=== PATIENT | female | born 1985 | race Caucasian/White ===

== ENCOUNTER → 2019-06-05 11:52 | Outpatient (CLI) | payer OTHER, SELFPAY ==
[2019-06-05 16:37] LABS: Chlamydia Trachomatis by PCR Negative (Negative); Neisserai gonorrhoeae by PCR Negative (Negative); Probe Check PASS; Sample Adequacy Control PASS; Specimen Processing Control PASS
== END ==
PROVIDERS: Visit Provider Advanced Practice Midwife
DX: Z11.3 Encounter for screening for infections with a predominantly sexual mode of transmission (principal)
CPT/HCPCS: 87491; 87591

== ENCOUNTER → 2019-06-28 16:03 | Outpatient (CLI) | payer OTHER, SELFPAY ==
[2019-06-28 17:12] LABS: Color, Urine Straw (Yellow); Glucose, Dipstick Normal (Normal); Ketone-Dipstick Negative (Negative); Leukocyte Esterase-Dipstick Negative /ul (Negative); Nitrite-Dipstick Negative (Negative); Occult Blood-Urine Negative /ul (Negative); Protein-Dipstick Negative (Negative); Urine Bilirubin Dipstick Negative (Negative); Urine Clarity Clear (Clear); Urine Urobilinogen Normal (Normal)
[2019-06-28 17:30] LABS: Absolute Lymphocyte Count 2.02 X10^3/uL (0.83-4.51); Absolute Neutrophil Count 7.3 X10^3/uL (2.0-7.7); Basophil# 0.03 X10^3/uL; Basophil% 0.3 % (0-1); Eosinophil# 0.04 X10^3/uL; Eosinophils% 0.4 % (0-5); Hematocrit 42.6 % (37-47); Hemoglobin 14.6 g/dL (12.0-15.0); Lymphocyte # 2.02 X10^3/ul (4.0); Mean Corp Hgb Conc 34.3 g/dL (32-36); Mean Corpuscular Hgb 30.6 pg (27.0-32.0); Mean Corpuscular Volume 89.3 fL (81-99); Mean Platelet Vol. 9.3 fl (6.2-12.0); Monocyte# 0.64 X10^3/uL; Monocyte% 6.3 % (0-10); NRBC Flagged by Analyzer 0 % (0-5); Neutrophil # 7.34 X10^3/uL (2.7-7.7); Neutrophil % 72.7 % (47-70); Platelet Count 267 K/mm3 (150-450); RBC Distribution Width CV 12.2 % (11.6-14.6); RBC Distribution Width SD 40.3 fl (35.1-43.9); Red Blood Count 4.77 M/mm3 (4.2-5.4); White Blood Count 10.1 K/mm3 (4.4-11.0)
[2019-06-28 18:18] LABS: Amphetamine Urine VISTA NEGATIVE (<1000 ng/mL); Barbiturate Urine VISTA NEGATIVE (< 200 ng/mL); Benzodiazepine Urine VISTA NEGATIVE (< 200 ng/mL); Cocaine Urine VISTA NEGATIVE (< 300 ng/mL); Ecstacy Urine VISTA NEGATIVE (< 500 ng/mL); Methadone Urine VISTA NEGATIVE (< 300 ng/mL); PCP Urine VISTA NEGATIVE (< 25 ng/mL); THC Urine VISTA NEGATIVE (< 50 ng/mL); Vista UDS pH Range 6
[2019-07-01 09:43] LABS: HIV - WCH Non-Reactive (Nonreactive); Hepatitis B Surface Antigen Non-Reactive (Nonreactive); Hepatitis C Antibody Non-Reactive (Nonreactive); Rubella IgG 7.7 IU/mL
[2019-07-04 02:24] LABS: Prenatal RPR NONREACTIVE (NONREACTIVE)
== END ==
PROVIDERS: Visit Provider Advanced Practice Midwife
DX: Z34.81 Encounter for supervision of other normal pregnancy, first trimester (principal)
CPT/HCPCS: 36415; 80307; 81002; 84443; 85025; 86703; 86762; 86803; 87340

== ENCOUNTER → 2019-10-03 13:52 | Outpatient (CLI) | payer BC, SELFPAY | PROVIDERS: Referring Provider Obstetrics & Gynecology; Visit Provider Obstetrics & Gynecology | DX: Z34.82 Encounter for supervision of other normal pregnancy, second trimester (principal); N89.8 Other specified noninflammatory disorders of vagina | CPT/HCPCS: 87086 ==

== ENCOUNTER → 2019-11-07 17:42 | Outpatient (CLI) | payer BC, SELFPAY ==
[2019-11-07 18:25] LABS: Hematocrit 37.6 % (37-47); Hemoglobin 12.5 g/dL (12.0-15.0); Mean Corp Hgb Conc 33.2 g/dL (32-36); Mean Corpuscular Hgb 31.2 pg (27.0-32.0); Mean Corpuscular Volume 93.8 fL (81-99); Mean Platelet Vol. 9.9 fl (6.2-12.0); Platelet Count 198 K/mm3 (150-450); RBC Distribution Width SD 44.3 fl (35.1-43.9); Red Blood Count 4.01 M/mm3 (4.2-5.4); White Blood Count 9.5 K/mm3 (4.4-11.0)
[2019-11-07 19:02] LABS: Glucose Challenge Gest 1H 50g 102 mg/dL (70-140)
== END ==
PROVIDERS: Visit Provider Obstetrics & Gynecology
DX: Z34.83 Encounter for supervision of other normal pregnancy, third trimester (principal)
CPT/HCPCS: 82950; 85027

== ENCOUNTER → 2020-01-02 10:00 | Outpatient (CLI) | payer BC, SELFPAY | PROVIDERS: Visit Provider Obstetrics & Gynecology | DX: Z36.85 Encounter for antenatal screening for Streptococcus B (principal) | CPT/HCPCS: 87081 ==

== ENCOUNTER 2020-01-30 12:00 | Inpatient (IN) | payer BC, SELFPAY ==
[2020-01-30] VITALS (15 sets, daily range): BP systolic 113–134; BP diastolic 61–81; PULSE 49–63; TEMP 36.7–37.2; O2SAT 96–100; BMI 24.8
--- NOTE | 2020-01-30 12:19 | PCM.HP.OB ---
- Problem List (1) 40 weeks gestation of Status: Acute (2) AMA (advanced maternal age) primigravida 35+ Status: Acute Qualifiers: Trimester: third trimester Qualified Code(s): O09.513 - Supervision of elderly primigravida, third trimester History Date of Admission: 01/30/20 Final JOANNE: 01/27/20 Gestational age: 40 Weeks and 3 Days History of this : This is a 35 year-old, G [1], P [], at 40 3/7 weeks gestational age. Medical History: Medical History (Last Updated 01/30/20 @ 17:[address] Camelia Perales MD) Asthma J45.909 Home Medications: Home Medications Docusate Sodium [Colace] 200 mg PO DAILY 01/30/20 Loratadine [Claritin] 10 mg PO DAILY 01/30/20 Pnv No.95/Ferrous Fum/Folic AC [ Vitamin Tablet] 1 ea PO DAILY 01/30/20 Alcohol: None Number of Fetus(es): 1 NST - FHR Rate Baby A Baseline: 130 Variability:: Moderate Accelerations:: 15 x 15 Decelerations:: None NST Reactive:: Yes FHR Category:: Category I Uterine Activity:: 3/10 min History Past Pregnancies: Past Pregnancies Delivery Date Name GA/ Weeks Outcome Route Wt Infant Sex Labor Length Anesthesia Delivery Location Provider FOB Labs: Mom's Problem List Problem Status Onset Code 40 weeks gestation of Acute Z3A.40 AMA (advanced maternal age) primigravida 35+ Acute O09.519 Mom's Labs & Results 01/30/20 01/30/20 01/30/20 12:55 14:15 14:15 WBC 10.5 RBC 4.57 Hgb 14.3 Hct 41.1 MCV 89.9 MCH 31.3 MCHC 34.8 RDW Std Deviation 40.6 RDW Coeff of Radha 12.5 Plt Count 176 MPV 10.4 Immature Gran % (Auto) 0.500 Neut % (Auto) 69.5 Lymph % (Auto) 21.9 [place] % (Auto) 7.1 Eos % (Auto) 0.6 Baso % (Auto) 0.4 Absolute Neuts (auto) 7.3 Absolute Lymphs (auto) 2.30 Nucleated RBC % 0 COVID-19 (VAZQUEZ) Not Detected Blood Type O POSITIVE Antibody Screen NEGATIVE Course Did the patient receive Yes care? Labs Blood Type: O RH: POSITIVE RPR/VDRL/Syphilis Nonreactive Rubella status Equivocal HbSAg Negative Date Done: 06/28/19 Chlamydia Negative Gonorrhea Negative HIV/AIDS Non-Reactive Group B Strep: Negative Current Obstetrical History Gestational Diabetes No Incompetent Cervix No Infertility No IUGR No Macrosomia No Hypertension/Pre-eclampsia No Placenta Previa/Abruption No PTL/PROM No Uterine anomaly No Oligohydramnios No Polyhydramnios No Multiple gestation No Past Medical History Asthma Yes: since childhood; inhaler prn Diabetes No Hypertension No Heart disease No Mitral valve prolapse No Neurologic/Seizure disorder/ No Migraines Kidney disease No Liver disease No Varicosities No Clotting disorders/Hx of DVT No Thyroid Dysfunction No Other medical diseases No Psychiatric disorders No Major trauma No Abnormal PAP smear Yes: 2003 Sleep apnea No Mammogram in the last 2 years No Social History Marital Status: SINGLE Alleged father Pedro Pablo Hx Smoking Yes Smoking Status Former smoker Substance Use Type Sleep Aides How long have you used N/A substances (years)? What date/time did you last Unisom occasionally in the past 2 months use any of the above? Have you had any previous N/A inpatient or outpatient treatment Expected Delivery Method: Spontaneous Vaginal Number of Visits: 14 Physical Exam Vitals: AVSS General: Alert, Oriented x3, Cooperative, No apparent distress HEENT: Atraumatic, Normocephalic Cardiovascular: Regular rate, Regular Rhythm, Normal S1, Normal S2 Lungs: Clear to auscultation, Normal air movement Abdomen: Soft, Non Tender, Non-Distended Extremities:: No edema Neurological: Neuro grossly intact Estimated gestational size: Appropriate for gestational size Presentation: Cephalic Cervix Dilation (cm): 0.5 Station: -3 Effacement (%): 30 Assessment/Plan All Active Problems 40 weeks gestation of (Acute) AMA (advanced maternal age) primigravida 35+ (Acute) This is a 35 year-old, G [1], P [], at 40 3/7 weeks gestational age. Cytotec for IOL
[2020-01-30] MEDS: Lactated Ringers 1,000 ML 50 ML IV (14:15)
[2020-01-30 14:42] LABS: Absolute Neutrophil Count 7.3 X10^3/uL (2.0-7.7); Basophil# 0.04 X10^3/uL; Basophil% 0.4 % (0-1); Eosinophil# 0.06 X10^3/uL; Eosinophils% 0.6 % (0-5); Hematocrit 41.1 % (37-47); Hemoglobin 14.3 g/dL (12.0-15.0); Lymphocyte % 21.9 % (19-41); Mean Corp Hgb Conc 34.8 g/dL (32-36); Mean Corpuscular Hgb 31.3 pg (27.0-32.0); Mean Corpuscular Volume 89.9 fL (81-99); Mean Platelet Vol. 10.4 fl (6.2-12.0); Monocyte# 0.75 X10^3/uL; Monocyte% 7.1 % (0-10); NRBC Flagged by Analyzer 0 % (0-5); Neutrophil % 69.5 % (47-70); Platelet Count 176 K/mm3 (150-450); RBC Distribution Width CV 12.5 % (11.6-14.6); RBC Distribution Width SD 40.6 fl (35.1-43.9); Red Blood Count 4.57 M/mm3 (4.2-5.4); White Blood Count 10.5 K/mm3 (4.4-11.0)
[2020-01-30] MEDS: miSOPROStol 25 MCG TABLET VAGINAL (14:42)
[2020-01-30] MEDS: miSOPROStol 50 MCG TABLET VAGINAL (18:47)
--- NOTE | 2020-01-30 19:59 | PCM.PN.OB ---
Patient Problems: Active and Suspected Problems (Last Updated 01/30/20 @ 17:[address] Camelia Perales MD) 40 weeks gestation of (Acute) AMA (advanced maternal age) primigravida 35+ (Acute) Subjective: Doing well. No pain at this time. Resting. Objective: SVE unchanged /50/-3 medium posterior. FHR baseline 130, +accels, -decels, moderate variability. Uterine irritability. - Physical Exam Vitals/I&O's: Vital Signs Temp Pulse BP Pulse Ox 98.2 F 50 L 134/61 H 100 01/30/20 19:57 01/30/20 19:58 01/30/20 19:58 01/30/20 19:57 Weight: 69.8 kg Body Mass Index (BMI) 24.8 Intake and Output for Last 24 Hours 01/28/20 01/29/20 01/30/20 23:59 23:59 23:59 Intake Total 1600 / 1600 Output Total 1150 / 1150 Balance 450 / 450 General: Alert, Oriented x3, Cooperative HEENT: Atraumatic, PERRLA, EOMI, Normocephalic Neck: Supple, No JVD, Negative Carotid Bruits Lungs: Clear to auscultation, Normal air movement Cardiovascular: Regular rate, No murmurs Abdomen: Bowel Sounds Present, Soft, Non Tender Extremities: No edema, Capillary Refill Less than 3 Seconds Skin: No rashes, No breakdown Musculoskeletal: No Tenderness to Palpation of Joints or Extremities Neurological: Cranial nerves II-XII grossly intact Psych/Mental Status: Normal Affect, Appropriate Laboratory Results 01/30/20 12:55: COVID-19 (VAZQUEZ) Not Detected 01/30/20 14:15: WBC 10.5, RBC 4.57, Hgb 14.3, Hct 41.1, MCV 89.9, MCH 31.3, MCHC 34.8, RDW Std Deviation 40.6, RDW Coeff of Radha 12.5, Plt Count 176, MPV 10.4, Immature Gran % (Auto) 0.500, Neut % (Auto) 69.5, Lymph % (Auto) 21.9, [place] % (Auto) 7.1, Eos % (Auto) 0.6, Baso % (Auto) 0.4, Absolute Neuts (auto) 7.3, Absolute Lymphs (auto) 2.30, Nucleated RBC % 0 01/30/20 14:15: Blood Type O POSITIVE, Antibody Screen NEGATIVE Current Medications Acetaminophen (Tylenol) 325 - 650 mg PO Q4H PRN PRN PRN Reason: Pain Score 1-3/10 Al Hydroxide/Mg Hydroxide (Mylanta Ii) 15 - 30 ml PO Q4H PRN PRN PRN Reason: INDIGESTION Citric Acid/Sodium Citrate (Bicitra) 30 ml PO X1 PRN PRN Reason: Section Docusate Sodium (Colace) 200 mg PO DAILY [facility] Fentanyl Citrate (Sublimaze (100mcg Ampule)) 25 - 50 mcg IV Q2H PRN PRN PRN Reason: Pain Score 4-10/10 Lactated Ringer's () 500 mls @ 999 mls/hr IV .Q31M PRN PRN Reason: Epidural Lactated Ringer's () 500 mls @ 999 mls/hr IV .Q31M PRN PRN Reason: Corrective Measures Lactated Ringer's () 1,000 mls @ 50 mls/hr IV .Q20H [facility] Last Admin: 01/30/20 14:15 Dose: 50 mls/hr Documented by: Misoprostol (Cytotec) 50 mcg VAGINAL Q6H [facility] Last Admin: 01/30/20 18:47 Dose: 50 mcg Documented by: Ondansetron HCl (Zofran) 4 mg IV Q4H PRN PRN PRN Reason: NAUSEA Prochlorperazine Edisylate (Compazine Iv) 10 mg IV Q6H PRN PRN PRN Reason: NAUSEA Sodium Chloride () 10 - 40 ml IV X1 PRN PRN Reason: SALINE FLUSH Medical Necessity - Tobacco Use Smoking Status: Former smoker Assessment/Plan All Active Problems (Last Updated 01/30/20 @ 17:[address] Camelia Perales MD) 40 weeks gestation of (Acute) AMA (advanced maternal age) primigravida 35+ (Acute) A/P: At 1830 received second dose of Cytotec SVE remains unchanged Continue IOL orders Expect
[2020-01-30] MEDS: Docusate Sodium 100 MG Capsule 200 MG PO (20:29)
[2020-01-30] MEDS: 0.9% Saline Lock 10 ML Syringe IV (22:56)
[2020-01-30] MEDS: Ondansetron 4 MG/2 ML Vial IV (22:56)
[2020-01-30] MEDS: Lactated Ringers 500 ML 999 ML IV (23:48)
[2020-01-31] VITALS (54 sets, daily range): BP systolic 97–136; BP diastolic 49–83; PULSE 46–80; RESP 16–18; TEMP 36.1–37.8; O2SAT 88–100
[2020-01-31] MEDS: fentaNYL-bupivacaine (epidural) 100 ML BAG EPIDURAL ×3 (00:39→12:05)
[2020-01-31] MEDS: Oxytocin 30 units/NS 500 ml 30 UNITS/500 ML IV.SOLN IV (01:35)
[2020-01-31] MEDS: Lactated Ringers 1,000 ML 200 ML IV ×3 (03:14→12:04)
--- NOTE | 2020-01-31 07:35 | PCM.PN.BLA ---
Progress Note LABOR PROGRESS NOTE Comfortable with epidural. No complaints. AVSS GEN - NAD, AAO x 3 FHR 125, moderate variabiltiy, + acceleration, no decelerations TOCO 4/10 min Pitocin at 4mu/min SVE 6/90/-2, soft A/P: 35yo G1 @ 40 4/7wga, IOL for AMA, Cat I FHR -Amniotomy performed, clear fluid -Continue pitocin as tolerated by mother and fetus -Maternal and statuses reassuring STROKE Vital Signs/Narrative: Vital Signs Temp Pulse BP Pulse Ox 01/31/20 07:24 53 L 109/61 01/31/20 07:19 99.3 F H 01/31/20 07:14 99.3 F H 01/31/20 06:29 100.0 F H 73 112/67 95 01/31/20 05:31 98.6 F 49 L 101/60 97 01/31/20 04:41 98.1 F 57 L 100/55 L 96
[2020-01-31] MEDS: Acetaminophen 325 MG Tablet PO (14:31)
[2020-01-31] MEDS: Sodium Citrate/Citric Acid 30 ML UDC PO (17:05)
--- NOTE | 2020-01-31 17:11 | PCM.OPRPT ---
Delivery Classification: SAMANTA Final JOANNE: 01/27/20 Final JOANNE Source: US <20 weeks Gestational age: 40 Weeks and 4 Days doctor who attended delivery (if requested by OB): Joycelyn Borrero - Thick Mec Stained Fluid Type of Anesthesia:: Epidural - With Duramorph Date of Procedure: 01/31/20 Pre-Operative Diagnosis: Failure to Progress and Descend; Cephalopelvic Disproportion; Failed Vacuum Attempt Post-Operative Diagnosis: Failure to Progress and Descend; Cephalopelvic Disproportion; Failed Vacuum Attempt Indications for : Failure to Progress, Failure of Descent, Failed vaccuum extraction, Suspected cephalopelvic disproportion Description of Procedure: Surgeon: Rodriguez Beck MD, FACOG Anesthesia: Ran Mayer CRNA Procedure: Primary Low Transverse Cervical Caesarean Section Findings: Viable male infant with Apgars of 8/9 in occiput anterior presentation with thick meconium stained amniotic fluid and normal three-vessel placenta. Indication: This is a 35-year-old who presented to labor and delivery for induction at 40+ weeks gestation. care has otherwise been uneventful. She progressed to complete and pushing and after 4 hours of pushing vacuum attempt was made without success. After 7 gentle pulls from low outlet with 1 pop-off it was decided to proceed with section for failure to descend. Suspected cephalopelvic disproportion. Thick meconium stained fluid was present as well. The patient has been counseled regarding the risk and indications of this procedure including the possibility of bleeding infection and injury to surrounding structures such as bowel bladder. All questions were answered. Procedure: Patient was taken to the operating room where after epidural catheter was redosed, the patient was prepped and draped in usual sterile fashion; a Leija catheter had been previously placed. The abdomen was entered through a Pfannenstiel incision and peritoneum was entered bluntly. After developing a bladder flap on the lower uterine segment a low transverse incision was made on the uterus and head was easily delivered onto the operative field the nose mouth and oropharynx were bulb suctioned. Subsequently a viable male infant was born with Apgars of 8/9. The infant was noted to have good tone and move all extremities vigorously on the operative field while being bulb suctioned. The umbilical cord was doubly clamped and ligated and infant handed to the nursery personnel who were present for the delivery. Placenta was delivered and noted to be 3 vessels and normal. Uterus was exteriorized and remaining placental tissue was removed. The uterus was then closed in 2 layers first with running locked 0 Vicryl suture followed by a second imbricating layer with 0 Vicryl suture. 0 Vicryl suture was then used in a horizontal mattress interrupted fashion to affect final hemostasis of the uterine incision line. Normal fallopian tubes and ovaries were visualized and the uterus was returned to the pelvis. Hemostasis was noted and rectus abdominis muscles were reapproximated in the midline with interrupted Number 0 Vicryl suture in a horizontal mattress fashion. Fascia was closed with running Number 1 PDS Strata fix suture. Subcutaneous tissue was irrigated with copious amounts of saline solution and then closed with running 3-0 Vicryl suture. Skin was closed with 4-0 monocryl suture in a running subcuticular fashion. Steri strips and a Mepilex dressing were placed across the incision. The patient tolerated the procedure well and was taken to the recovery room in satisfactory condition. Sponge, needle, and instrument counts were all reportedly correct. EBL was 500 cc. Ancef 2 gms and azithromycin IV were given prior to the procedure. Spicemen to Pathology: Placenta Complications: None Amniotic Fluid Description: Thick meconium Placenta Disposition: Sent to Pathology Drain: Leija to straight drain Fluids Replaced: Crystalloid Cord Entanglement: None Cord Vessel Description: 3 Vessels Esitmated Blood Loss (ml): 500 cc Infant Gender: Male (1 minute): 8 (5 minute): 9 Antibiotic Given: Ancef 2 grams IV x1, Zithromax 500 mg/5 mL X1 Pt instructed on risks of surgery: Bleeding, Infection, Injury to surrounding structure(s) including bowel and bladder - Admit VTE Documentation VTE Present on Admission: Yes VTE Mechan Device Prophylaxis: SCD's
--- NOTE | 2020-01-31 17:18 | DCINST_ITS ---
Discharge Diet: No Restrictions Discharge Activity: May not drive while taking narcotic pain medications., May Shower, May Take a Tub Bath May resume sexual activity in: 4-6 weeks Lifting Restrictions: 20 pounds Additional Activity Instructions:: Nothing in the vagina for 4-6 weeks. You may return to work/school in 6 weeks. Call your doctor if your incision/area has: Continuous Slow Oozing, Sudden Increased Bleeding, Increased Pain/ Swelling, Increased Redness, Foul Smelling Discharge Call your doctor if you observe: Fever of 101 or Higher, Inability to urinate, Inability to have a bowel movement, Using more than one pad per hour Additional Instructions: If you experience any of the following, contact your healthcare provider. * Bleeding that soaks a pad every hour for 2 hours * Fever 100.4 or higher * Unrelieved incision or abdominal pain * Swelling, redness, discharge or bleeding from your incision or episiotomy site * Your incision begins to separate * Problems urinating (including inability to urinate or burning while urinating). * Visual changes * Severe headache * Flu-like symptoms * Pain or redness in one of both of your breasts * Pain, warmth, tenderness or swelling in your legs, especially the calf area * Frequent nausea and vomiting * Symptoms of depression or anxiety If you experience any of the following, call 911 or go to the nearest Emergency Room. * Chest pain * Problems breathing * Seizure activity * Partial or complete paralysis of a body part, slurred speech, weakness or drooping of the face, or a sudden inability to walk or hold your balance Allergies/Adverse Reactions: Allergies No Known Allergies Allergy (Verified 01/30/20 15:27) Medications to take at Discharge Docusate Sodium [Colace] 200 mg PO DAILY 01/30/20 Loratadine [Claritin] 10 mg PO DAILY 01/30/20 Pnv No.95/Ferrous Fum/Folic AC [ Vitamin Tablet] 1 ea PO DAILY 01/30/20 Oxycodone [Oxyir] 5 mg PO Q6H PRN PRN 7 Days #20 tablet 01/31/20 The following prescriptions were given: Oxycodone [Oxyir] 5 mg PO Q6H PRN PRN 7 Days #20 tablet PRN Reason: Pain Score 6-04/11 Transmission Status: Received by ANA MARIA [id number] Follow-Up: Call to make an appointment with your doctor for an incision check in 1-2 weeks. You will also need a 6 week post- follow up appointment. Test results from this visit will be discussed in further detail at your follow- up appointment, if applicable. Please Follow Up With: Camelia Chowdhury MD - [phone] When: Call to make an appointment for an incision check in 2 weeks.
[2020-01-31] MEDS: Cefazolin 2 GM in 0.9% Normal Saline 100 ML IV (17:20)
[2020-01-31] MEDS: Oxytocin 30 units/NS 500 ml 30 UNITS/500 ML IV.SOLN 167 UNITS IV (18:35)
[2020-01-31] MEDS: Lactated Ringers 1,000 ML 100 ML IV (18:35)
[2020-01-31] MEDS: Acetaminophen 500 MG Tablet 1000 MG PO (20:20)
--- NOTE | 2020-01-31 20:40 | NURSING ---
Epidural catheter removed, blue tip intact.
--- NOTE | 2020-01-31 20:55 | NURSING ---
Report given to Alannah MASCORRO, taking over pt and care at this time.
[2020-01-31] MEDS: Ketorolac 30 MG/ML Syringe IV (23:25)
[2020-01-31] MEDS: 0.9% Saline Lock 10 ML Syringe IV (23:36)
[2020-02-01] VITALS (8 sets, daily range): BP systolic 89–100; BP diastolic 50–55; PULSE 57–68; RESP 16–18; TEMP 36.2–36.6; O2SAT 96–100
--- NOTE | 2020-02-01 | PLAC_PTH ---
PATIENT: SUNNY ALEMAN LOC: WP U#:[id number] AGE/SX: 35/F ROOM: WP008 RE01/30/[address]: Dr. Rodriguez Beck MD : 1985 BED: 1 DIS: 02/02/2020 SPEC #: [id number] RECD: 02/01/20 00:24 STATUS: BRAYDEN CARMEN #: [id number] TAYLOR: 02/01/20 00:[address]: Rodirguez Beck DEPT: SURGICAL PATHOLOGY RECD BY: Lamine Panchal Tissues: Placenta, NOS Procedures: Surgery Specimen Level V HEADER OPERATION: Primary section PRE-OP DIAGNOSIS: Meconium staining TISSUE SUBMITTED: Placenta MICROSCOPIC DIAGNOSIS Norris placenta (416 gm): Umbilical cord - trivascular with no evidence of inflammation. Placental membranes - pigmented macrophages consistent with meconium staining and mild acute chorioamnionitis. Placental disc - [place] change, intervillous and intravillous congestion. Mildly increased intraparenchymal microcalcifications. AM:seth 02/05/20 MICROSCOPIC DESCRIPTION Slides are reviewed. GROSS DESCRIPTION SPECIMEN: PLACENTA / CLINICAL INFORMATION: A. Weight: 3.31 kg B. Gestational Age: 40 weeks C. Sex: Male PLACENTAL WEIGHT (POST FIXATION): 416 gm PLACENTAL DIMENSIONS: 21 x 18 x 2 cm PLACENTAL SHAPE: Usual ovoid PLACENTAL WEIGHT FOR GESTATIONAL AGE: Within 10-99th percentile MEMBRANES - Present A. Insertion: Marginal B. Site of rupture from edge: Point of rupture cannot be assessed due to fragmented nature of membranes. C. Color of membrane: The membranes are fragmented and greenish consistent with meconium staining. D. Abnormalities: None UMBILICAL CORD - Present A. Color: Pedro-alfonso B. Insertion: Central C. Length: 32 cm D. Diameter: 1.4 cm E. Number of vessels: Three F. Abnormalities: None PLACENTAL DISC - Present A. Color of surface: Pedro-alfonso B. surface abnormalities: None C. Maternal cotyledons: Intact with minimal tears D. Attached retro placental clot: No clot E. Cut surface: Dark red and spongy F. Lesions: None G. Separate clot: Absent SECTIONS SUBMITTED: 1. Membrane roll 2. Cord, maternal end 3. Cord, end 4. Placental disc, and maternal surfaces 5. Placental disc, and maternal surfaces 6. Placental disc, and maternal surfaces SJ:seth 02/04/20 TC:2 CPT: 82291
[2020-02-01] MEDS: Cefazolin 1 GM/50 ML BAG IV ×2 (01:15→08:34)
[2020-02-01] MEDS: Acetaminophen 500 MG Tablet 1000 MG PO ×4 (01:16→21:02)
[2020-02-01] MEDS: 0.9% Saline Lock 10 ML Syringe IV ×3 (06:15→18:06)
[2020-02-01] MEDS: Ketorolac 30 MG/ML Syringe IV ×3 (06:15→18:06)
[2020-02-01 06:17] LABS: Hematocrit 33.6 % (37-47); Hemoglobin 11.7 g/dL (12.0-15.0); Mean Corp Hgb Conc 34.8 g/dL (32-36); Mean Corpuscular Hgb 31.4 pg (27.0-32.0); Mean Corpuscular Volume 90.1 fL (81-99); Mean Platelet Vol. 10.2 fl (6.2-12.0); Platelet Count 136 K/mm3 (150-450); RBC Distribution Width CV 12.3 % (11.6-14.6); RBC Distribution Width SD 40.5 fl (35.1-43.9); Red Blood Count 3.73 M/mm3 (4.2-5.4); White Blood Count 16.1 K/mm3 (4.4-11.0)
[2020-02-01] MEDS: Docusate Sodium 100 MG Capsule 200 MG PO (10:29)
--- NOTE | 2020-02-01 11:33 | PN.OBGYN_ITS ---
Patient Problems: Active and Suspected Problems (Last Updated 01/30/20 @ 17:[address] Camelia Perales MD) 40 weeks gestation of (Acute) AMA (advanced maternal age) primigravida 35+ (Acute) Subjective: Has been mostly in bed, but cramping and sore. The Tylenol and Toradol are helping as well as a heating pad. son well. Denies heavy bleeding or uncontrolled pain. Feels very constipated and asking for a stool softener. Objective: VSS. Bowel are hypoactive. Surgical dressing is CDI. Fundus is firm, midline, u/2. Lochia rubra moderate - Physical Exam Vitals/I&O's: Vital Signs Temp Pulse Resp BP Pulse Ox 97.7 F L 63 18 93/53 L 96 02/01/20 08:15 02/01/20 08:15 02/01/20 08:15 02/01/20 08:15 02/01/20 08:15 Oxygen Delivery Method Room Air Weight: 69.8 kg Body Mass Index (BMI) 24.8 Intake and Output for Last 24 Hours 01/30/20 01/31/20 02/01/20 23:59 23:59 23:59 Intake Total 2800 / 2800 7401.32 / 7401.32 1050 / 1050 Output Total 2650 / 2650 3050 / 3050 400 / 400 Balance 150 / 150 4351.32 / 4351.32 650 / 650 General: Alert, Oriented x3, Cooperative HEENT: Atraumatic, PERRLA, EOMI, Normocephalic Neck: Supple, No JVD, Negative Carotid Bruits Lungs: Clear to auscultation, Normal air movement Cardiovascular: Regular rate, No murmurs Abdomen: Bowel Sounds Present, Soft, Non Tender, Hypoactive Bowel Sounds, - - surgical dressing CDI Extremities: No edema, Capillary Refill Less than 3 Seconds Skin: No rashes, No breakdown Musculoskeletal: No Tenderness to Palpation of Joints or Extremities Neurological: Cranial nerves II-XII grossly intact Psych/Mental Status: Normal Affect, Appropriate Laboratory Results 02/01/20 06:10: WBC 16.1 H, RBC 3.73 L, Hgb 11.7 L, Hct 33.6 L, MCV 90.1, MCH 31.4, MCHC 34.8, RDW Std Deviation 40.5, RDW Coeff of Radha 12.3, Plt Count 136 L, MPV 10.2 Current Medications Acetaminophen (Tylenol) 1,000 mg PO Q6H [facility] Last Admin: 02/01/20 08:35 Dose: 1,000 mg Documented by: Bisacodyl (Dulcolax) 10 mg RECTAL UD PRN PRN Reason: If no BM Diphenhydramine HCl (Benadryl) 25 mg PO Q6H PRN PRN PRN Reason: ITCHING Stop: 02/01/20 18:43 Docusate Sodium (Colace) 200 mg PO DAILY [facility] Last Admin: 02/01/20 10:29 Dose: 200 mg Documented by: Hydrocortisone (Hytone) 1 applic TOPICAL TID PRN PRN; Protocol PRN Reason: Discomfort Lactated Ringer's () 1,000 mls @ 100 mls/hr IV .Q10H [facility] Last Admin: 02/01/20 06:45 Dose: Not Given Documented by: Naloxone HCl 4 mg/ Dextrose 504 mls @ 0 mls/hr IV .Q0M PRN; Protocol PRN Reason: Respiratory depression Ibuprofen (Motrin) 600 mg PO Q6 [facility] Ketorolac Tromethamine (Toradol (Bkc)) 30 mg IV Q6H [facility] Stop: 02/01/20 18:01 Last Admin: 02/01/20 06:15 Dose: 30 mg Documented by: Loratadine (Claritin) 10 mg PO DAILY [facility] Last Admin: 02/01/20 10:30 Dose: Not Given Documented by: Methylergonovine Maleate (Methergine) 0.2 mg IM X1 PRN PRN Reason: Uterine Atony Nalbuphine HCl (Nubain) 5 mg IV Q3H PRN PRN PRN Reason: ITCHING Stop: 02/01/20 18:43 Naloxone HCl (Narcan) 0.02 mg IV Q1M PRN PRN Reason: RR <10 and pt unresponsive Ondansetron HCl (Zofran) 4 mg IV Q4H PRN PRN PRN Reason: Nausea Oxycodone HCl (Oxyir) 5 - 10 mg PO Q4H PRN PRN PRN Reason: Pain Score 4-10/10 Prochlorperazine Edisylate (Compazine Iv) 10 mg IV Q6H PRN PRN PRN Reason: NAUSEA Senna/Docusate Sodium (Senokot-S, Ignacia-Colace) 0 tablet PO DAILY [facility] Simethicone (Mylicon) 80 mg PO PCHS PRN PRN Reason: Indigestion/stomach pain Sodium Chloride () 5 - 15 ml IV UD PRN PRN Reason: SALINE FLUSH Last Admin: 02/01/20 06:15 Dose: 10 ml Documented by: Medical Necessity - Tobacco Use Smoking Status: Former smoker Assessment/Plan All Active Problems (Last Updated 01/30/20 @ 17:[address] Camelia Perales MD) 40 weeks gestation of (Acute) AMA (advanced maternal age) primigravida 35+ (Acute) A/P: S/P Primary Csection POD #1 mother Pain well controlled To continue orders Expect discharge tomorrow
[2020-02-01] MEDS: Senna/Docusate Sodium 1 Tablet PO (12:04)
[2020-02-01] MEDS: Ibuprofen 600 MG Tablet PO (23:54)
[2020-02-02 02:20] VITALS: BP 95/59; PULSE 64; RESP 16; TEMP 36.3
[2020-02-02] MEDS: oxyCODONE 5 MG Tablet PO ×2 (02:40→12:12)
[2020-02-02] MEDS: Acetaminophen 500 MG Tablet 1000 MG PO ×2 (03:39→09:55)
[2020-02-02] MEDS: Ibuprofen 600 MG Tablet PO ×2 (06:11→13:07)
[2020-02-02 09:00] VITALS: BP 91/57; PULSE 72; RESP 16; TEMP 36.4; O2SAT 97
--- NOTE | 2020-02-02 09:33 | NURSING ---
Faint redness noted above dressing with no warmth noted.
[2020-02-02] MEDS: Docusate Sodium 100 MG Capsule 200 MG PO (09:54)
--- NOTE | 2020-02-02 12:38 | PCM.PN.OB ---
Patient Problems: Active and Suspected Problems (Last Updated 01/30/20 @ 17:[address] Camelia Perales MD) 40 weeks gestation of (Acute) AMA (advanced maternal age) primigravida 35+ (Acute) Subjective: Patient without complaints. Tolerating diet well. Positive BM. Ready to go home. Objective: Good urine output. Wound clean, dry, and intact with Mepilex dressing present. - Physical Exam Vitals/I&O's: Vital Signs Temp Pulse Resp BP Pulse Ox 97.5 F L 72 16 91/57 L 97 02/02/20 09:00 02/02/20 09:00 02/02/20 09:00 02/02/20 09:00 02/02/20 09:00 Oxygen Delivery Method Room Air Weight: 153 lb 14.122 oz Body Mass Index (BMI) 24.8 Intake and Output for Last 24 Hours 01/31/20 02/01/20 02/02/20 23:59 23:59 23:59 Intake Total 7401.32 / 7401.32 1100 / 1100 Output Total 3050 / 3050 400 / 400 Balance 4351.32 / 4351.32 700 / 700 Current Medications Acetaminophen (Tylenol) 1,000 mg PO Q6H [facility] Last Admin: 02/02/20 09:55 Dose: 1,000 mg Documented by: Bisacodyl (Dulcolax) 10 mg RECTAL UD PRN PRN Reason: If no BM Docusate Sodium (Colace) 200 mg PO DAILY [facility] Last Admin: 02/02/20 09:54 Dose: 200 mg Documented by: Hydrocortisone (Hytone) 1 applic TOPICAL TID PRN PRN; Protocol PRN Reason: Discomfort Naloxone HCl 4 mg/ Dextrose 504 mls @ 0 mls/hr IV .Q0M PRN; Protocol PRN Reason: Respiratory depression Ibuprofen (Motrin) 600 mg PO Q6 [facility] Last Admin: 02/02/20 06:11 Dose: 600 mg Documented by: Loratadine (Claritin) 10 mg PO DAILY [facility] Last Admin: 02/02/20 09:55 Dose: Not Given Documented by: Methylergonovine Maleate (Methergine) 0.2 mg IM X1 PRN PRN Reason: Uterine Atony Naloxone HCl (Narcan) 0.02 mg IV Q1M PRN PRN Reason: RR <10 and pt unresponsive Ondansetron HCl (Zofran) 4 mg IV Q4H PRN PRN PRN Reason: Nausea Oxycodone HCl (Oxyir) 5 - 10 mg PO Q4H PRN PRN PRN Reason: Pain Score 4-10/10 Last Admin: 02/02/20 12:12 Dose: 5 mg Documented by: Prochlorperazine Edisylate (Compazine Iv) 10 mg IV Q6H PRN PRN PRN Reason: NAUSEA Senna/Docusate Sodium (Senokot-S, Ignacia-Colace) 0 tablet PO DAILY [facility] Last Admin: 02/02/20 09:56 Dose: Not Given Documented by: Simethicone (Mylicon) 80 mg PO PCHS PRN PRN Reason: Indigestion/stomach pain Sodium Chloride () 5 - 15 ml IV UD PRN PRN Reason: SALINE FLUSH Last Admin: 02/01/20 18:06 Dose: 10 ml Documented by: Medical Necessity - Tobacco Use Smoking Status: Former smoker Assessment/Plan All Active Problems (Last Updated 01/30/20 @ 17:[address] Camelia Perales MD) 40 weeks gestation of (Acute) AMA (advanced maternal age) primigravida 35+ (Acute) Doing well postoperative day #2 status post primary section for failure to progress and CPD. Will discharge to home with routine instructions.
--- NOTE | 2020-02-02 12:41 | DS.PCM_ITS ---
Discharge Summary Date of Admission: 01/30/20 Date of Discharge: 02/02/20 Summary: Admission diagnosis: Term Intrauterine Discharge diagnosis: Term Intrauterine , Failure to Progress, Cephalopelvic Disproportion Procedure: Primary low transverse cervical section HPI: Uneventful care. PE: Unremarkable. Hospital Course: The patient is a 35 year old G 1 P 0 who presented to [facility] at 40+ weeks gestation. She subsequently had a primary for failure to progress and CPD. Postoperatively she did well demonstrating a stable HGB on POD 1 and bowel fxn by POD 2 at which time it was felt she was ready for discharge. Homegoing Instruction: She was instructed not to drive for several days or if using narcotic pain medication, not to put anything in the vagina for 4 weeks, not to lift >25 lbs for 6 weeks and to call the office for an appointment in 2 weeks and 6 weeks. Discharge Medications: She was given a prescription for Oxycodone and also plans to use Aleve or Motrin or Tylenol at home as needed for pain and Colace for constipation. Patient Problems: Active and Suspected Problems (Last Updated 01/30/20 @ 17:[address] Camelia Perales MD) 40 weeks gestation of (Acute) AMA (advanced maternal age) primigravida 35+ (Acute) - Physical Exam Vitals/I&O's: Vital Signs Temp Pulse Resp BP Pulse Ox 97.5 F L 72 16 91/57 L 97 02/02/20 09:00 02/02/20 09:00 02/02/20 09:00 02/02/20 09:00 02/02/20 09:00 Oxygen Delivery Method Room Air Weight: 153 lb 14.122 oz Body Mass Index (BMI) 24.8 Intake and Output for Last 24 Hours 01/31/20 02/01/20 02/02/20 23:59 23:59 23:59 Intake Total 7401.32 / 7401.32 1100 / 1100 Output Total 3050 / 3050 400 / 400 Balance 4351.32 / 4351.32 700 / 700 Current Medications Acetaminophen (Tylenol) 1,000 mg PO Q6H [facility] Last Admin: 02/02/20 09:55 Dose: 1,000 mg Documented by: Bisacodyl (Dulcolax) 10 mg RECTAL UD PRN PRN Reason: If no BM Docusate Sodium (Colace) 200 mg PO DAILY [facility] Last Admin: 02/02/20 09:54 Dose: 200 mg Documented by: Hydrocortisone (Hytone) 1 applic TOPICAL TID PRN PRN; Protocol PRN Reason: Discomfort Naloxone HCl 4 mg/ Dextrose 504 mls @ 0 mls/hr IV .Q0M PRN; Protocol PRN Reason: Respiratory depression Ibuprofen (Motrin) 600 mg PO Q6 [facility] Last Admin: 02/02/20 06:11 Dose: 600 mg Documented by: Loratadine (Claritin) 10 mg PO DAILY [facility] Last Admin: 02/02/20 09:55 Dose: Not Given Documented by: Methylergonovine Maleate (Methergine) 0.2 mg IM X1 PRN PRN Reason: Uterine Atony Naloxone HCl (Narcan) 0.02 mg IV Q1M PRN PRN Reason: RR <10 and pt unresponsive Ondansetron HCl (Zofran) 4 mg IV Q4H PRN PRN PRN Reason: Nausea Oxycodone HCl (Oxyir) 5 - 10 mg PO Q4H PRN PRN PRN Reason: Pain Score 4-10/10 Last Admin: 02/02/20 12:12 Dose: 5 mg Documented by: Prochlorperazine Edisylate (Compazine Iv) 10 mg IV Q6H PRN PRN PRN Reason: NAUSEA Senna/Docusate Sodium (Senokot-S, Ignacia-Colace) 0 tablet PO DAILY [facility] Last Admin: 02/02/20 09:56 Dose: Not Given Documented by: Simethicone (Mylicon) 80 mg PO PCHS PRN PRN Reason: Indigestion/stomach pain Sodium Chloride () 5 - 15 ml IV UD PRN PRN Reason: SALINE FLUSH Last Admin: 02/01/20 18:06 Dose: 10 ml Documented by:
[2020-02-02 13:07] VITALS: BP 113/49; PULSE 74; RESP 16; TEMP 36.2
[2020-02-05 14:30] LABS: Pathology Specimen OB SEE PATHOLOGY REPORT
== END 2020-02-02 14:35 | disposition home or self-care (01) | DRG 788 ==
PROVIDERS: Obstetrics & Gynecology; Admitting Provider Obstetrics & Gynecology; Visit Provider Obstetrics & Gynecology
DX: O99.52 Diseases of the respiratory system complicating childbirth (principal); J45.909 Unspecified asthma, uncomplicated; O32.4XX0 Maternal care for high head at term, not applicable or unspecified; O65.4 Obstructed labor due to fetopelvic disproportion, unspecified; O62.2 Other uterine inertia; O77.0 Labor and delivery complicated by meconium in amniotic fluid; O66.5 Attempted application of vacuum extractor and forceps; Z87.891 Personal history of nicotine dependence; Z3A.40 40 weeks gestation of pregnancy; Z37.0 Single live birth
CPT/HCPCS: 59025; 59050; 85025; 85027; 86850; 86900; 86901; 87635; 88307; 94799; J7120; A4216; J2405; U0003

== ENCOUNTER 2020-02-03 15:11 | Emergency (ER) | payer BC, SELFPAY ==
[2020-01-30 15:24] VITALS: BMI 24.8
[2020-02-03 15:13] VITALS: BP 142/86; PULSE 69; RESP 17; TEMP 36.6; O2SAT 97; BMI 25.9
--- NOTE | 2020-02-03 15:54 | ED.VIS.GEN ---
History of Present Illness Chief Complaint: Complaint Informant: Patient Onset: Hours - 5-6 Context: Gradual Onset Timing: Continuous Quality: Unable to urinate, feels the need to Location: Suprapubic Current Severity: Severe Maximum Severity: Severe Worsened by: Nothing Relieved by: Nothing Associated Symptoms: Lower abdominal distention and discomfort Narrative: Patient had a 3 days ago after failed vacuum-assisted vaginal delivery, for failure to descend, and had a Leija catheter in place that was removed 3 days ago, she has been urinating without any difficulty, and no hematuria, today suddenly she was unable to void after having voided fine this morning earlier. Just prior to my evaluating patient, nurses placed a Leija catheter, and drained approximately 1400 cc and the patient feels much better now. She did not have any lacerations or repairs in her perineum. She is having some postoperative soreness in her abdomen, but it has been doing well prior to this. She denies any fevers or chills. No dysuria prior to this. Past Medical History - Allergies and Home Meds Allergies/Adverse Reactions: Allergies No Known Allergies Allergy (Verified 02/03/20 15:13) Primary Care Physician: Rodriguez Beck MD [STAFF PHYSICIAN] - 1 Day (for catheter removal, or alternatively you may use included syringe and remove yourself at home tomorrow) Surgical History: - - Lives: With Family Smoking Status: Former smoker Review of Systems General: Denies: Chills, Fever, Sweats Eyes: Denies: Visual changes - bilaterally, Diplopia ENT: Denies: Rhinorrhea, Sore throat Cardiovascular: Denies: Chest pain, Palpitations Respiratory: Denies: Dyspnea, Cough, Dyspnea on exertion Gastrointestinal: Reports: Abdominal pain. Denies: Nausea, Vomiting, Diarrhea, Melena, Hematochezia Genitourinary: Reports: - - Urinary retention, see HPI. Denies: Dysuria, Hematuria, Frequency Musculoskeletal: Denies: Back pain, Extremity Pain Skin: Denies: Rash, Wounds Neurological: Denies: Headache, Weakness, Numbness Physical Exam Vital Signs/Narrative: Vital Signs Temp Pulse Resp BP Pulse Ox 02/03/20 15:13 97.8 F 69 17 142/86 H 97 Inital Vital Signs reviewed: Yes General: Well nourished, Well developed, No Acute Distress Head: Normocephalic, Atraumatic Eyes: Perrl, EOMI ENT: Moist mucous membranes, No rhinorrhea Neck: Supple, Nontender Cardiovascular: Regular rate, Regular rhythm, No murmurs Respiratory: No distress, CTA bilaterally, Chest nontender Abdomen: Soft, Nondistended, Normal bowel sounds, Tender - Mild, incision, where there is a dressing clean dry intact, - - Mild suprapubic swelling, erythema, does not appear indurated or cellulitic. Negative for: Guarding, Rebound tenderness : - - External vaginal exam is unremarkable, no significant labial edema, laceration, trauma, or other abnormality. Leija in place. There appears to be some mild swelling around the mons pubis area, likely postoperative, caudal to low transverse incision and dressing. Back: Nontender. Negative for: CVA tenderness Extremities: Nontender, No edema Skin: Normal color, No rash Neurological: Alert, Oriented x3, Cranial nerves II-XII grossly intact, Normal Strength, Normal Sensation Psychological: Normal affect, Normal Mood Diagnostic/Tx/Re-eval Laboratory Tests 02/03/20 Range/Units 16:25 Urine Color Yellow (Yellow) Urine Clarity Sl. Cloudy (Clear) Urine pH 6.0 (5.0 - 8.0) Ur Specific [place] 1.010 (1.002-1.030) Urine Protein Negative (Negative) mg/dl Urine Glucose (UA) Normal (Normal) mg/dl Urine Ketones Negative (Negative) mg/dl Urine Occult Blood 250 H (Negative) /ul Urine Nitrite Negative (Negative) Urine Bilirubin Negative (Negative) mg/dL Urine Urobilinogen Normal (Normal) mg/dl Ur Leukocyte Esterase Negative (Negative) /ul Urine RBC 25-50 SEEN (0-5) /hpf Urine WBC 0-5 SEEN (0-5) /hpf Ur Squamous Epith Cells 0-5 SEEN (5-10) /hpf Amorphous Sediment 1+ URATE Urine Bacteria RARE (None Seen) /hpf Urine Mucus 0 SEEN (<or=2+) /hpf - Medical Decision Making Discussed with Dr. Beck, he states the like to leave these in just overnight, the patient can either come in tomorrow to have it removed or remove it herself, I will discuss those options with her. He likes to have his patients with Leija on an antibiotic for at least a couple days, so she will be prescribed Macrobid. Urinalysis showed no infection. ED Disposition - Plan for ED Patient: Disposition: Home or Assisted Living Diagnosis: Acute urinary retention Instructions: ED Leija Catheter Care, ED Retention Urinary Female Prescriptions: Nitrofurantoin Macrocrystals [Macrobid] 100 mg PO Q12 #6 cap Transmission Status: Pending to [facility] Referrals: Rodriguez Beck MD [STAFF PHYSICIAN] - 1 Day (for catheter removal, or alternatively you may use included syringe and remove yourself at home tomorrow)
[2020-02-03 16:18] VITALS: RESP 18
[2020-02-03 16:37] LABS: Mucous, Urine 0 SEEN /hpf (<or=2+)
[2020-02-03 16:42] LABS: Color, Urine Yellow (Yellow); Glucose, Dipstick Normal (Normal); Ketone-Dipstick Negative (Negative); Leukocyte Esterase-Dipstick Negative /ul (Negative); Nitrite-Dipstick Negative (Negative); Occult Blood-Urine 250 /ul (Negative); Protein-Dipstick Negative (Negative); Urine Bilirubin Dipstick Negative (Negative); Urine Clarity Sl. Cloudy (Clear); Urine Urobilinogen Normal (Normal)
[2020-02-03 16:51] LABS: Amorphous Sediment 1+ URATE; Bacteria RARE /hpf (None Seen); Red Blood Cells-Urine 25-50 SEEN /hpf (0-5); Squamous Epithelial Cells - UA 0-5 SEEN /hpf (5-10); White Blood Cells 0-5 SEEN /hpf (0-5)
[2020-02-03 18:16] VITALS: RESP 18
== END 2020-02-03 18:16 | disposition home or self-care (01) ==
PROVIDERS: Emergency Provider Emergency Medicine
DX: R33.9 Retention of urine, unspecified (principal); Z87.891 Personal history of nicotine dependence
CPT/HCPCS: 51702; 81001; 99283

== ENCOUNTER → 2021-06-09 12:17 | Outpatient (CLI) | payer BC, SELFPAY ==
[2021-06-14 13:23] LABS: HPV APTIMA, High Risk Negative (Negative)
== END ==
PROVIDERS: Visit Provider Obstetrics & Gynecology
DX: Z12.4 Encounter for screening for malignant neoplasm of cervix (principal)
CPT/HCPCS: 87624; 88175; G0145

== ENCOUNTER → 2022-11-04 | Outpatient (CLI) | payer OTHER, SELFPAY ==
[2022-11-04 11:38] LABS: AST(SGOT) 17 U/L (15-37); Alanine Aminotransfer ALT/SGPT 20 U/L (13-56); Albumin, Serum 3.9 g/dL (3.2-5.0); Alkaline Phosphatase 59 U/L (45-117); Bilirubin, Direct 0.15 mg/dL (0.00-0.30); Globulin 3.9 g/dL (2.2-4.2); Protein, Total 7.8 g/dL (6.4-8.2)
== END | disposition home or self-care (01) ==
LOC: LAB 10:01
PROVIDERS: Referring Provider Student in an Organized Health Care Education/Training Program; Visit Provider Student in an Organized Health Care Education/Training Program
DX: B35.1 Tinea unguium (principal)
CPT/HCPCS: 36415; 80076

== ENCOUNTER → 2022-12-14 | Outpatient (CLI) | payer OTHER, SELFPAY ==
[2022-12-14 12:11] LABS: AST(SGOT) 12 U/L (15-37); Alanine Aminotransfer ALT/SGPT 16 U/L (13-56); Alkaline Phosphatase 57 U/L (45-117); Globulin 3.7 g/dL (2.2-4.2); Protein, Total 7.7 g/dL (6.4-8.2)
== END | disposition home or self-care (01) ==
PROVIDERS: PCP Nurse Practitioner Primary Care; Referring Provider Student in an Organized Health Care Education/Training Program; Visit Provider Student in an Organized Health Care Education/Training Program
DX: B35.1 Tinea unguium (principal)
CPT/HCPCS: 36415; 80076

== ENCOUNTER → 2024-06-20 | Outpatient (CLI) | payer OTHER, SELFPAY ==
[2024-06-20 13:11] LABS: Syphilis Antibodies Non-reactive
== END | disposition home or self-care (01) ==
PROVIDERS: PCP Nurse Practitioner Primary Care; Referring Provider Physician Assistant; Visit Provider Physician Assistant
DX: L98.499 Non-pressure chronic ulcer of skin of other sites with unspecified severity (principal)
CPT/HCPCS: 36415; 86780